=== PATIENT | female | born 1960 | race Asian ===

== ENCOUNTER → 2021-12-13 08:42 | Outpatient (CLI) | payer OTHER, SELFPAY ==
--- NOTE | ~2021-12-13 | US_ITS ---
EXAMINATION: US abdomen complete DATE: 12/13/2021 09:08 INDICATION: Organomegaly TECHNIQUE: Multiple grayscale and Doppler ultrasound images of the abdomen were obtained. COMPARISON: None available. FINDINGS: The visualized portions of the pancreas are normal. The liver is normal with normal echogen icity and echotexture. No surface nodularity. Normal hepatopetal flow in the main portal vein. The ga llbladder is normal with no abnormal wall thickening, pericholecystic fluid or stones. The common layo e duct measures 3 mm. There was no sonographic Green sign. The visualized portions of the aorta and inferior vena cava are normal. The right kidney measures 9.7 x 2.8 x 5.1. The left kidney measures 10.7 x 3.9 x 5.3. The kidneys dem onstrate normal parenchymal echogenicity. Subcentimeter right inferior pole cyst. There is no hydrone phrosis. The spleen is normal in appearance and measures 9.2 cm. IMPRESSION: Normal abdominal ultrasound findings. Reviewed, dictated and finalized at location K.
== END ==
PROVIDERS: PCP Internal Medicine Medical Oncology; Visit Provider Internal Medicine Medical Oncology
DX: R19.00 Intra-abdominal and pelvic swelling, mass and lump, unspecified site (principal)
CPT/HCPCS: 76700

== ENCOUNTER 2022-04-20 08:37 | Outpatient (CLI) | payer OTHER, SELFPAY ==
--- NOTE | 2022-04-23 15:58 | WPDHOLTEREM ---
Holter/Event Monitor Holter/Event Monitor Date of procedure: 04/20/22 Holter/Event Procedure: 48 Hr Holter Monitor Indications: Palpitations Conclusion: 1. 48 hour holter monitor on 04/20/22. 2. Predominant rhythm is sinus rhythm. HR range 57-111 bpm; average HR 76 bpm. 3. There are 81 premature supraventricular complexes and 4 supraventricular couplets. There are 3 episodes of atrial tachycardia, fastest at 145 bpm and longest lasting 5 beats. 4. There are 1,049 premature ventricular complexes. No ventricular tachycardia. 5. No sinoatrial or atrioventricualr blocks. No significant pauses greater than 2 seconds. 6. Patient reports symptoms of irregular beats, skipped beat, stronger beats which demonstrate sinus rhythm, HR range 62-92 bpm and 1 PVC.
== END 2022-04-20 08:38 | disposition home or self-care (01) ==
PROVIDERS: PCP Family Medicine; Visit Provider Family Medicine
DX: R00.2 Palpitations (principal)
CPT/HCPCS: 93225; 93226

== ENCOUNTER → 2023-01-18 10:23 | Outpatient (CLI) | payer OTHER, SELFPAY ==
--- NOTE | ~2023-01-18 | MM_ITS ---
EXAMINATION: MM screening eleon[facility] BI w noam HISTORY: Screening mammogram TECHNIQUE: Craniocaudal and mediolateral oblique 3-D tomosynthesis images were obtained and synthetic 2-D images were generated. CAD analysis was submitted and interpreted. COMPARISON: No prior mammogram is available for comparison at this institution. BREAST PARENCHYMAL COMPOSITION: The breasts are heterogeneously dense, which may obscure small masses . FINDINGS: There are scattered benign-appearing round and punctate microcalcifications. There is no ev idence of suspicious mass, calcification, or architectural distortion to suggest malignancy in either breast. There has been no suspicious interval change. IMPRESSION: 1. No mammographic evidence of malignancy. 2. Recommend routine screening mammography in one year. BI-RADS Category 2: Benign finding(s). Reviewed, dictated and finalized at location A.
--- NOTE | ~2023-01-18 | DEXA_ITS ---
Bone Density Report Name: ESTELA FOX Age: 62 Sex: Female Ethnicity: Date of : 1960 Indication: osteopenia;postmenopausal Referring Provider: Gaviota Rodriguez Study: Bone densitometry was performed. Exam Date: January 18, 2023 Accession number: [id number] Bone Density: Region BMD T-score Z-score Classification AP Spine (L1-L4) 0.786 -2.4 -0.9 Osteopenia Femoral Neck (Left) 0.494 -3.2 -1.9 Osteoporosis Total Hip (Left) 0.549 -3.2 -2.2 Osteoporosis Femoral Neck (Right) 0.510 -3.1 -1.7 Osteoporosis Total Hip (Right) 0.578 -3.0 -2.0 Osteoporosis Total Hip Mean 0.564 -3.1 -2.1 Osteoporosis World Health Organization criteria for BMD impression classify patients as: Normal (T-score at or above -1.0), Osteopenia (T-score between -1.0 and -2.5), or Osteoporosis (T-score at or below -2.5). 10-year Fracture Risk: FRAX not reported because: Some T-score for Spine Total or Hip Total or Femoral Neck at or below -2.5 Previous Exams: Region Exam Age BMD T-score BMD Change BMD Change Date g/cm2 vs Baseline vs Previous AP Spine(L1-L4) 01/18/2023 62 0.786 -2.4 -0.253* -0.096* 01/15/2015 54 0.882 -1.5 -0.157* -0.117* 10/25/2009 48 0.999 -0.4 -0.040* -0.040* 03/23/2008 47 1.040 -0.1 Total Hip(Left) 01/18/2023 62 0.549 -3.2 -0.138* -0.099* 01/15/2015 54 0.648 -2.4 -0.039* -0.025 10/25/2009 48 0.674 -2.2 -0.014 -0.014 03/23/2008 47 0.687 -2.1 Total Hip(Right) 01/18/2023 62 0.578 -3.0 -0.149* -0.076* 01/15/2015 54 0.654 -2.4 -0.072* -0.056* 10/25/2009 48 0.710 -1.9 -0.016 -0.016 03/23/2008 47 0.727 -1.8 *Denotes significance at 95% confidence level, LSC for AP Spine = 0.022 g/cm2, LSC for Total Hip = 0.027 g/cm2 Clinical Information Provided by Patient: Has used the following medications: Vitamin D, Calcium Patient maximum height was 65.0 Menopause Age: 48 No regular weight bearing exercise Drinks caffeinated beverages Onset of menses at age 15 Number of children 1 Impression: The patient has osteoporosis, based on the Left Total Hip T-score. The BMD for the AP Spine(L1-L4) decreased, changing by -0.096 since the last DXA exam. The BMD for the Total Hip(Left) decreased, changing by -0.099 since the last DXA exam. The BMD for the Total Hip(Right) decreased, c
== END ==
PROVIDERS: PCP Family Medicine; Visit Provider Family Medicine
DX: Z12.31 Encounter for screening mammogram for malignant neoplasm of breast (principal); Z78.0 Asymptomatic menopausal state; M85.88 Other specified disorders of bone density and structure, other site; M81.0 Age-related osteoporosis without current pathological fracture
CPT/HCPCS: 77063; 77067; 77080

== ENCOUNTER 2024-02-28 07:50 | Outpatient (CLI) | payer OTHER, SELFPAY ==
--- NOTE | ~2024-02-28 | US_ITS ---
EXAM: ABDOMEN ULTRASOUND HISTORY: Hemosiderosis COMPARISON: FINDINGS: LIVER: The liver is increased in echogenicity and unremarkable in size, measuring 16 cm in longitudin al dimension. The main portal vein is patent demonstrating hepatopedal flow GALLBLADDER: No stones are identified within the gallbladder, which is otherwise unremarkable. No gallbladder wall thickening or pericholecystic fluid. BILE DUCTS: Common bile duct measures 3mm. PANCREAS: Limited evaluation of the pancreas secondary to overlying bowel gas RIGHT KIDNEY: 10.7cmIn length. No hydronephrosis or bulky renal calculi. VASCULATURE : The abdominal aorta is nonaneurysmal. The IVC is patent. IMPRESSION: Fatty infiltration of the liver. Otherwise, unremarkable US of the RUQ Reviewed, dictated and finalized at location [] TESTER
== END 2024-02-28 07:51 | disposition home or self-care (01) ==
PROVIDERS: PCP Family Medicine; Visit Provider Internal Medicine Medical Oncology
DX: E83.19 Other disorders of iron metabolism (principal); K76.0 Fatty (change of) liver, not elsewhere classified
CPT/HCPCS: 76705

== ENCOUNTER 2025-02-21 08:17 | Outpatient (CLI) | payer OTHER, SELFPAY ==
--- NOTE | ~2025-02-21 | US_ITS ---
ULTRASOUND ABDOMEN LIMITED (RIGHT UPPER QUADRANT) Clinical History: hepatic steatosis Comparison: 02/28/2024 Technique: Right upper quadrant sonography Findings: Liver: Normal size. Normal echotexture. No intrahepatic biliary ductal dilatation. Normal hepatopedal flow main portal vein. Common Duct: Normal caliber. 3 mm. Gallbladder: No stones. No wall thickening. No pericholecystic fluid. Pancreas: Unremarkable. Right kidney: Unremarkable. Retrohepatic IVC: Unremarkable. IMPRESSION: 1. No acute findings. Reviewed, dictated and finalized at location R. STEAMER IMPRESSION: 1. No acute findings.
== END 2025-02-21 08:18 | disposition home or self-care (01) ==
LOC: MICIMG 08:18
PROVIDERS: PCP Family Medicine; Visit Provider Internal Medicine Medical Oncology
DX: K76.0 Fatty (change of) liver, not elsewhere classified (principal)
CPT/HCPCS: 76705